=== PATIENT | female | born 1945 | race Caucasian/White ===

== ENCOUNTER 2016-06-10 12:53 | Emergency (ER) ==
--- NOTE | 2016-06-10 13:20 | PROVIDER DOCUMENTATION ---
HPI-Head Injury - General Source: patient, EMS - History of Present Illness-Head Injury Head Injury Location: reports: occipital Other injuries associated with incident:: reports: head Quality of Pain: reports: aching Severity: reports: moderate Onset/Duration: reports: just prior to arrival Timing: reports: still present Method of Injury: reports: fell Any recent trauma/injury?: reports: minor Loss of Consciousness: no loss of consciousness Locality of Occurance: Home Similar Symptoms Previously?: No Recently seen or treated by another doctor?: No <Rochelle Tinoco - Last Filed: 06/10/16 14:19> <Kamilah Aguilera - Last Filed: 06/10/16 14:52> - General Chief Complaint: Fall Stated Complaint: fell and hit head Time Seen by Provider: 06/10/16 13:00 Allergies/Adverse Reactions: Patient Allergies Allergy/AdvReac Type Severity Reaction Status Date / Time adhesive tape Allergy RASH Verified 06/10/16 13:25 levofloxacin [From Levaquin] Allergy Unknown Verified 06/10/16 13:25 cephalexin monohydrate * AdvReac HIVES Verified 06/10/16 13:25 [From Keflex] codeine AdvReac ITCHING Verified 06/10/16 13:25 Home Medications: Cholecalciferol (Vitamin D3) [Vitamin D3] 2,000 unit PO QHS 05/13/15 Levothyroxine [Synthroid] 25 microgm PO DAILY 05/15/15 Lamotrigine [Lamictal] 800 mg PO DAILY 12/10/15 Dicyclomine [Bentyl] 1 tab PO DAILY 04/13/16 - History of Present Illness-Head Injury Nature of Presenting Problem: Reports was running to go to bathroom in slippers lost balance fell and hit back of head bleeding controlled. Denies n,v,loc,blurry vision. (Rochelle Tinoco) Review of Systems - Adult - REVIEW OF SYSTEMS - ADULT Constitutional: denies: chills, fever, fatique Eyes: reports: no symptoms reported Ears, Nose, Mouth & Throat: reports: no symptoms reported Cardiovascular: denies: chest pain, irregular heart rate, orthopnea, syncope Respiratory: reports: no symptoms reported Gastrointestinal: reports: no symptoms reported Genitourinary: reports: no symptoms reported Musculoskeletal: reports: no symptoms reported Integumentary: reports: see HPI Neurological: reports: see HPI, headache/migraines. denies: numbness, paresthesia, tremors Psychiatric: reports: no symptoms reported Endocrine: reports: no symptoms reported Hematologic/Lymphatic: reports: no symptoms reported Allergic/Immunologic: reports: no symptoms reported All Other Systems: Reviewed and Negative <EarnestRochelle - Last Filed: 06/10/16 14:19> Past History - Adult - PAST MEDICAL HISTORY-ADULT Review of Records: reports: Nursing Assessment Review Major Childhood Illnesses: reports: denies history Cardiovascular: reports: denies history Respiratory: reports: asthma, pneumonia Gastrointestinal: reports: cholelithiasis Obstetrical/Gynecological: reports: denies history Genitourinary: reports: denies history Musculoskeletal: reports: other (pt states dignosed) Neurological: reports: Multiple Sclerosis, Seizures/Epilepsy (seizure ) Endocrine/Immune: reports: denies history Other Conditions: reports: denies history - PRIOR SURGERIES/PROCEDURES Surgical/Procedure History: reports: appendectomy, colonoscopy, hysterectomy, hernia repair, orthopedic (extremity) - IMMUNIZATION STATUS Childhood Immunizations: See Nurse Assessment Flu Vaccine: See Nurse Assessment - FAMILY HISTORY Family History: reviewed, not pertinent - SOCIAL HISTORY Smoking: denies Substance Use: none/never <EarnestRochelle - Last Filed: 06/10/16 14:19> Physical Exam- Neurological - Physical Exam-Neuro Initial Vital Signs Reviewed: Yes General Appearance: appears well, alert, no apparent distress Eye Exam: bilateral eye: normal inspection, PERRL, EOMI HENMT: normocephalic/atraumatic, moist mucous membranes, normal ENT inspection, TMs normal, pharynx normal Head Injury: lacerations (2cm occipital) Neck: non-tender, full range of motion, supple, normal inspection Respiratory: chest non-tender, lungs clear, normal breath sounds, no pleuratic chest pain, no respiratory distress, no accessory muscle use Cardiovascular: normal peripheral pulses, regular rate, rhythm, no edema, no gallop, no JVD, no murmur Abdominal Exam: normal bowel sounds, non tender, soft, no organomegaly, no pulsatile mass Lymphatic: no adenopathy Extremity: normal range of motion, non-tender, normal gait, normal inspection, no pedal edema, no calf tenderness, normal capillary refill, 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 Exam: normal hearing, normal speech, PERRL Coordination/Gait: normal finger to nose, normal gait, negative Romberg's sign Motor/Sensory: no motor deficit, no sensory deficit, no pronator drift, negative Babinski's sign 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 II-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 Ready to go home) - XRAY 1 XRAY Study: Chest Impression: Normal - CT/MRI 1 CT Study: Cervical Spine, Head Impression: Normal <You Aguilerajonna X - Last Filed: 06/10/16 14:52> - PLAN OF CARE/RESULTS Progress/Plan/Lab Results: Orders Category Date Time Status Cardiac Monitoring DIRECTED Care 06/10/16 13:17 Active Saline Loc NOW Care 06/10/16 13:17 Active CHEST-PORTABLE [RAD] Stat Exams 06/10/16 13:17 Ordered HEAD W/O CONTRAST [CT] Stat Exams 06/10/16 13:18 Ordered CBC WITH ELECTRONIC DIFF [HEME] Stat Lab 06/10/16 13:17 Ordered COMPREHENSIVE METABOLIC PANEL [CHEM] Stat Lab 06/10/16 13:17 Ordered TROPONIN T Stat Lab 06/10/16 13:[address] W/POSS RFLX CULT [URINALYSIS] Stat Lab 06/10/16 13:17 Uncollected Pulse Oximetry Stat Oth 06/10/16 13:17 Active EKG [EKG] Stat Ther 06/10/16 13:17 Ordered Vital Signs - 24 hr 06/10/16 12:55 Temperature 98.2 F Pulse Rate 87 Respiratory 18 Rate Blood Pressure 147/85 O2 Sat by Pulse 95 Oximetry Laboratory Tests 06/10/16 06/10/16 06/10/16 12:57 Unknown Unknown WBC RBC Hgb Hct MCV MCH MCHC RDW Std Deviation Plt Count MPV Immature Gran % (Auto) Neut % (Auto) Lymph % (Auto) [place] % (Auto) Eos % (Auto) Baso % (Auto) Immature Gran # (Auto) Neut # (Auto) Lymph # (Auto) [place] # (Auto) Eos # (Auto) Baso # (Auto) PT INR APTT (Factor Assay) Sodium 141 Potassium 3.6 Chloride 103 Carbon Dioxide 25 Anion Gap 13 BUN 13 Creatinine 0.7 Estimated GFR/1.73 m2 > 60 BUN/Creatinine Ratio 19 Glucose 132 H Calculated Osmolality 283 Calcium 10.0 Total Bilirubin 0.20 AST 20 ALT 14 Alkaline Phosphatase 117 H Troponin T < 0.010 Total Protein 7.5 Albumin 4.5 Globulin 3.0 Albumin/Globulin Ratio 2.0 Urine Source VOIDED Urine Color YELLOW Urine Clarity SL. CLOUDY A Urine pH 7.0 Ur Specific [place] 1.010 Urine Protein 1+(30 mg/dL) A Urine Ketones NEGATIVE Urine Blood NEGATIVE Urine Nitrite NEGATIVE Urine Bilirubin NEGATIVE Urine Urobilinogen NORMAL Urine Microscopic RBC <10 Urine WBC TRACE A Urine Microscopic WBC <10 Ur Epithelial Cells >10 A Urine Bacteria 1+ Urine Yeast PRESENT Urine Glucose NEGATIVE 06/10/16 06/10/16 Unknown Unknown WBC 5.00 RBC 5.21 Hgb 13.8 Hct 43.6 MCV 83.7 MCH 26.5 L MCHC 31.7 L RDW Std Deviation 15.7 H Plt Count 372 MPV 10.0 Immature Gran % (Auto) 0.6 H Neut % (Auto) 60.0 Lymph % (Auto) 27.4 [place] % (Auto) 9.0 Eos % (Auto) 2.8 Baso % (Auto) 0.2 Immature Gran # (Auto) 0.03 Neut # (Auto) 3.00 Lymph # (Auto) 1.37 [place] # (Auto) 0.45 Eos # (Auto) 0.14 Baso # (Auto) 0.01 PT 19.2 H INR 1.59 H APTT (Factor Assay) 33.1 Sodium Potassium Chloride Carbon Dioxide Anion Gap BUN Creatinine Estimated GFR/1.73 m2 BUN/Creatinine Ratio Glucose Calculated Osmolality Calcium Total Bilirubin AST ALT Alkaline Phosphatase Troponin T Total Protein Albumin Globulin Albumin/Globulin Ratio Urine Source Urine Color Urine Clarity Urine pH Ur Specific [place] Urine Protein Urine Ketones Urine Blood Urine Nitrite Urine Bilirubin Urine Urobilinogen Urine Microscopic RBC Urine WBC Urine Microscopic WBC Ur Epithelial Cells Urine Bacteria Urine Yeast Urine Glucose (Rochelle Tinoco) Laboratory Results - last 24 hr 06/10/16 06/10/16 06/10/16 12:57 Unknown Unknown WBC RBC Hgb Hct MCV MCH MCHC RDW Std Deviation Plt Count MPV Immature Gran % (Auto) Neut % (Auto) Lymph % (Auto) [place] % (Auto) Eos % (Auto) Baso % (Auto) Immature Gran # (Auto) Neut # (Auto) Lymph # (Auto) [place] # (Auto) Eos # (Auto) Baso # (Auto) PT INR APTT (Factor Assay) Sodium 141 Potassium 3.6 Chloride 103 Carbon Dioxide 25 Anion Gap 13 BUN 13 Creatinine 0.7 Estimated GFR/1.73 m2 > 60 BUN/Creatinine Ratio 19 Glucose 132 H Calculated Osmolality 283 Calcium 10.0 Total Bilirubin 0.20 AST 20 ALT 14 Alkaline Phosphatase 117 H Troponin T < 0.010 Total Protein 7.5 Albumin 4.5 Globulin 3.0 Albumin/Globulin Ratio 2.0 Urine Source VOIDED Urine Color YELLOW Urine Clarity SL. CLOUDY A Urine pH 7.0 Ur Specific [place] 1.010 Urine Protein 1+(30 mg/dL) A Urine Ketones NEGATIVE Urine Blood NEGATIVE Urine Nitrite NEGATIVE Urine Bilirubin NEGATIVE Urine Urobilinogen NORMAL Urine Microscopic RBC <10 Urine WBC TRACE A Urine Microscopic WBC <10 Ur Epithelial Cells >10 A Urine Bacteria 1+ Urine Yeast PRESENT Urine Glucose NEGATIVE 06/10/16 06/10/16 Unknown Unknown WBC 5.00 RBC 5.21 Hgb 13.8 Hct 43.6 MCV 83.7 MCH 26.5 L MCHC 31.7 L RDW Std Deviation 15.7 H Plt Count 372 MPV 10.0 Immature Gran % (Auto) 0.6 H Neut % (Auto) 60.0 Lymph % (Auto) 27.4 [place] % (Auto) 9.0 Eos % (Auto) 2.8 Baso % (Auto) 0.2 Immature Gran # (Auto) 0.03 Neut # (Auto) 3.00 Lymph # (Auto) 1.37 [place] # (Auto) 0.45 Eos # (Auto) 0.14 Baso # (Auto) 0.01 PT 19.2 H INR 1.59 H APTT (Factor Assay) 33.1 Sodium Potassium Chloride Carbon Dioxide Anion Gap BUN Creatinine Estimated GFR/1.73 m2 BUN/Creatinine Ratio Glucose Calculated Osmolality Calcium Total Bilirubin AST ALT Alkaline Phosphatase Troponin T Total Protein Albumin Globulin Albumin/Globulin Ratio Urine Source Urine Color Urine Clarity Urine pH Ur Specific [place] Urine Protein Urine Ketones Urine Blood Urine Nitrite Urine Bilirubin Urine Urobilinogen Urine Microscopic RBC Urine WBC Urine Microscopic WBC Ur Epithelial Cells Urine Bacteria Urine Yeast Urine Glucose Vital Signs Temp Pulse Resp BP Pulse Ox 06/10/16 14:20 73 17 156/104 98 06/10/16 12:55 98.2 F 87 18 147/85 95 adhesive tape Allergy (Verified 06/10/16 13:25) RASH levofloxacin [From Levaquin] Allergy (Verified 06/10/16 13:25) Unknown TENDENITIS cephalexin monohydrate * [From Keflex] Adverse Reaction (Verified 06/10/16 13:25 ) HIVES codeine Adverse Reaction (Verified 06/10/16 13:25) ITCHING Cholecalciferol (Vitamin D3) [Vitamin D3] 2,000 unit PO QHS 05/13/15 Levothyroxine [Synthroid] 25 microgm PO DAILY 05/15/15 Warfarin [Coumadin] 10 mg PO QHS #30 tablet 05/16/15 Albuterol Sulfate [Albuterol Sulfate Hfa] 2 puff IH Q4H PRN #1 hfa.aer.ad Lamotrigine [Lamictal] 800 mg PO DAILY 12/10/15 Dicyclomine [Bentyl] 1 tab PO DAILY 04/13/16 Ondansetron HCl [Zofran] 1 - 2 tab PO Q6H PRN PRN #15 tablet 04/13/16 Pantoprazole [Protonix] 40 mg PO DAILY@0700 #30 tablet 04/13/16 Laboratory 06/10/16 06/10/16 06/10/16 Unknown Unknown Unknown WBC 5.00 RBC 5.21 Hgb 13.8 Hct 43.6 MCV 83.7 MCH 26.5 L MCHC 31.7 L RDW Std Deviation 15.7 H Plt Count 372 MPV 10.0 Immature Gran % (Auto) 0.6 H Neut % (Auto) 60.0 Lymph % (Auto) 27.4 [place] % (Auto) 9.0 Eos % (Auto) 2.8 Baso % (Auto) 0.2 Immature Gran # (Auto) 0.03 Neut # (Auto) 3.00 Lymph # (Auto) 1.37 [place] # (Auto) 0.45 Eos # (Auto) 0.14 Baso # (Auto) 0.01 PT 19.2 H INR 1.59 H APTT (Factor Assay) 33.1 Sodium Potassium Chloride Carbon Dioxide Anion Gap BUN Creatinine Estimated GFR/1.73 m2 BUN/Creatinine Ratio Glucose Calculated Osmolality Calcium Total Bilirubin AST ALT Alkaline Phosphatase Troponin T < 0.010 Total Protein Albumin Globulin Albumin/Globulin Ratio Urine Source Urine Color Urine Clarity Urine pH Ur Specific [place] Urine Protein Urine Ketones Urine Blood Urine Nitrite Urine Bilirubin Urine Urobilinogen Urine Microscopic RBC Urine WBC Urine Microscopic WBC Ur Epithelial Cells Urine Bacteria Urine Yeast Urine Glucose 06/10/16 06/10/16 Unknown 12:57 WBC RBC Hgb Hct MCV MCH MCHC RDW Std Deviation Plt Count MPV Immature Gran % (Auto) Neut % (Auto) Lymph % (Auto) [place] % (Auto) Eos % (Auto) Baso % (Auto) Immature Gran # (Auto) Neut # (Auto) Lymph # (Auto) [place] # (Auto) Eos # (Auto) Baso # (Auto) PT INR APTT (Factor Assay) Sodium 141 Potassium 3.6 Chloride 103 Carbon Dioxide 25 Anion Gap 13 BUN 13 Creatinine 0.7 Estimated GFR/1.73 m2 > 60 BUN/Creatinine Ratio 19 Glucose 132 H Calculated Osmolality 283 Calcium 10.0 Total Bilirubin 0.20 AST 20 ALT 14 Alkaline Phosphatase 117 H Troponin T Total Protein 7.5 Albumin 4.5 Globulin 3.0 Albumin/Globulin Ratio 2.0 Urine Source VOIDED Urine Color YELLOW Urine Clarity SL. CLOUDY A Urine pH 7.0 Ur Specific [place] 1.010 Urine Protein 1+(30 mg/dL) A Urine Ketones NEGATIVE Urine Blood NEGATIVE Urine Nitrite NEGATIVE Urine Bilirubin NEGATIVE Urine Urobilinogen NORMAL Urine Microscopic RBC <10 Urine WBC TRACE A Urine Microscopic WBC <10 Ur Epithelial Cells >10 A Urine Bacteria 1+ Urine Yeast PRESENT Urine Glucose NEGATIVE Orders Category Date Time Status Cardiac Monitoring DIRECTED Care 06/10/16 13:17 Active Saline Loc NOW Care 06/10/16 13:17 Active CHEST-1 VIEW [RAD] Stat Exams 06/10/16 13:17 Completed HEAD W/O CONTRAST [CT] Stat Exams 06/10/16 13:18 Taken CBC WITH ELECTRONIC DIFF [HEME] Stat Lab 06/10/16 Completed COMPREHENSIVE METABOLIC PANEL [CHEM] Stat Lab 06/10/[address] Com[address]IME WITH INR PL [COAG] Stat Lab 06/10/[address] [COAG] Stat Lab 06/10/16 Completed TROPONIN T Stat Lab 06/10/[address] W/POSS RFLX CULT [URINALYSIS] Stat Lab 06/10/16 12:57 Completed URINE CULTURE [RM] Routine Lab 06/10/16 14:08 Ordered Acetaminophen [Tylenol] Med 06/10/16 13:32 Discontinued 1,000 mg PO NOW ONE Pulse Oximetry Stat Oth 06/10/16 13:17 Active EKG [EKG] Stat Ther 06/10/16 13:17 Ordered (Kamilah Aguilera) Procedures - LACERATION/WOUND REPAIR/FB Head Wound Length: 3 CM Wound's Depth, Shape: superficial, irregular Wound Explored/Foreign Body: clean Irrigated with Saline?: Yes Prepped with: Betadine Hibiclens Wound Debrided: minimal Wound Repaired with: [place]-Large Number of Sutures: 3 Layer Closure?: No Sterile Dressing Applied?: No Splint Applied?: No Sling Applied?: No <Kamilah Aguilera - Last Filed: 06/10/16 14:52> Departure - Departure Time of Disposition Order: 14:20 Certified Medical Emergency: Emergent <Rochelle Tinoco - Last Filed: 06/10/16 14:19> - Departure Time of Disposition Order: 14:49 Certified Medical Emergency: Emergent <Kamilah Aguilera - Last Filed: 06/10/16 14:52> - Departure DIAGNOSIS: Laceration Head injury Qualifiers: Encounter type: initial encounter Qualified Code(s): S09.90XA - Unspecified injury of head, initial encounter Fall Qualifiers: Encounter type: initial encounter Qualified Code(s): W19.XXXA - Unspecified fall, initial encounter Disposition: HOME 01 Condition: Stable Additional Instructions: ED Follow Up Instructions: Return to ER immediately if start to have confusion, Headache, cannot walk straight and nausea, vomiting, or unequal pupils. Follow up with regular MD tomorrow. You have been treated by a care provider in the Emergency Department. These instructions are being provided to you so you can have an understanding of how to care for yourself upon discharge. Upon discharge from the Emergency Department, you are responsible for making arrangements for follow-up care by a physician of your choice. Take all prescribed medications as directed. Return to the Emergency Department immediately for any new or worsening symptoms. You may call the Physician Referral phone number at [phone] to obtain a list of Physicians who are taking new patients. Referrals: None,PCP [Primary Care Provider] - Attestation - Scribe Verification/Attestation Scribe:: Rochelle Tinoco Acting as Scribe for:: Kamilah Aguilera Scribe documention review:: This chart was documented by a scribe and accurately reflects the service the provider performed and the decisions made by the provider. <Rochelle Tinoco - Last Filed: 06/10/16 14:19> Physician Attestation
[2016-06-10 13:30] LABS: URINE SOURCE VOIDED
[2016-06-10 13:31] LABS: MANUAL DIFF NEEDED? NO
[2016-06-10] MEDS ORDERED: TYLENOL PO ONE (13:32)
[2016-06-10 13:34] LABS: BASO% 0.2 % (0.0-0.8); EOS# 0.14 X1000 (0.0-0.7); EOS% 2.8 % (0.0-10.0); HEMATOCRIT 43.6 % (37.0-47.0); HEMOGLOBIN 13.8 g/dL (12.0-16.0); IMM GRAN# 0.03 X1000 (0.0-0.04); IMM GRAN% 0.6 % (0.0-0.5); LYMPH# 1.37 X1000 (1.2-3.4); LYMPH% 27.4 % (20.5-51.1); MCH 26.5 PG (27-31); MCHC 31.7 g/dL (33-37); MCV 83.7 FL (81-99); MONO# 0.45 X1000 (0.11-0.59); PLT 372 X1000 (130-400); RBC 5.21 XMIL (4.2-5.4)
[2016-06-10 14:03] LABS: AGAP 13; ALBUMIN 4.5 g/dL (3.5-5.0); ALKALINE PHOSPHATASE 117 U/L (32-104); BUN 13 mg/dL (8-22); CHLORIDE 103 mmol/L (98-107); COSMO 283; GOT 20 U/L (10-30); GPT 14 U/L (10-36); INR 1.59 (0.86-1.15); POTASSIUM 3.6 mmol/L (3.5-5.1); PROTIME 19.2 Seconds (12.1-15.5); SODIUM 141 mmol/L (136-145); TCO2 25 mmol/L (25-35); TOTAL PROTEIN 7.5 g/dL (6.3-8.3)
[2016-06-10 14:04] LABS: PTT PL 33.1 Seconds (22.6-43.9)
[2016-06-10 14:05] LABS: BILIRUBIN URINE NEGATIVE (NEGATIVE); BLOOD URINE NEGATIVE (NEGATIVE); CLARITY SL. CLOUDY (CLEAR); COLOR YELLOW; GLUCOSE URINE NEGATIVE (NEGATIVE); LEUKOCYTES URINE TRACE (NEGATIVE); NITRITE URINE NEGATIVE (NEGATIVE); PROTEIN URINE 1+(30 mg/dL) mg/dL (NEGATIVE); UROBILINOGEN URINE NORMAL
[2016-06-10 14:08] LABS: URINE CULTURE PL NEEDED? YES; URINE EPITHELIAL CELLS >10 /HPF (<10); URINE RBC <10 /HPF (<10); URINE WBC <10 /HPF (<10)
[2016-06-10 14:20] VITALS: BP 156/104
--- NOTE | 2016-06-10 14:33 | Diag Imaging Result Document ---
PROCEDURE NAME: CHEST-1 VIEW - 06/10/2016 AP CHEST: FINDINGS: There is no evidence of acute cardiac or pulmonary disease. Compared to 04/13/2016 there has been no significant change. IMPRESSION: Stable chest.
--- NOTE | 2016-06-10 14:50 | Diag Imaging Result Document ---
PROCEDURE NAME: HEAD W/O CONTRAST - 06/10/2016 CT HEAD WITHOUT CONTRAST: FINDINGS: A dose reduction protocol was used. Compared with 12/10/2015. There is mild subcutaneous soft tissue swelling at the posterior scalp. There is no evidence of intracranial hemorrhage, mass effect, midline shift, or hydrocephalus. There are moderate chronic microvascular ischemic changes. There is no lacunar infarct at the right caudate nucleus. There is no indication of recent infarct, although acute infarcts may not be immediately visible. There is no skull fracture. IMPRESSION: Chronic ischemic changes. No visible acute intracranial abnormality. No evidence of intracranial injury.
--- NOTE | 2016-06-11 00:06 | EKG Report ---
Test Performed on : 06/10/2016 1:38:42 PM Test Reason : AMS Blood Pressure : / mmHG Vent. Rate : 073 BPM Atrial Rate : 073 BPM P-R Int : 148 ms QRS Dur : 128 ms QT Int : 438 ms P-R-T Axes : 072 -46 030 degrees QTc Int : 482 ms Normal sinus rhythm. Right bundle branch block Left anterior fascicular block Bifascicular block Abnormal ECG When compared with ECG of 13-APR-2016 13:59, No significant change was found Unconfirmed Result
== END 2016-06-10 15:31 | disposition home or self-care (01) ==
LOC: P.ED 12:53
DX: S01.01XA Laceration without foreign body of scalp, initial encounter (principal); S09.90XA Unspecified injury of head, initial encounter; R51 Headache; G35 Multiple sclerosis; J45.909 Unspecified asthma, uncomplicated; W01.0XXA Fall on same level from slipping, tripping and stumbling without subsequent striking against object, initial encounter; Z79.899 Other long term (current) drug therapy; Z79.01 Long term (current) use of anticoagulants
CPT/HCPCS: 70450; 71010; 80053; 81001; 84484; 85025; 85610; 85730; 87088; 93005

== ENCOUNTER 2017-01-02 17:52 | Inpatient (IN) ==
--- NOTE | 2017-01-02 18:43 | PROVIDER DOCUMENTATION ---
This chart was entered by Carl Pate Scribe, acting as scribe for Steve Cheney MD. HPI-Neurological Disorder - General Chief Complaint: Headache Stated Complaint: DIZZINESS Time Seen by Provider: 01/02/17 18:08 Source: patient Allergies/Adverse Reactions: Patient Allergies Allergy/AdvReac Type Severity Reaction Status Date / Time adhesive tape Allergy RASH Verified 10/16/16 15:02 levofloxacin [From Levaquin] Allergy Unknown Verified 10/16/16 15:02 cephalexin monohydrate * AdvReac HIVES Verified 10/16/16 15:02 [From Keflex] codeine AdvReac ITCHING Verified 10/16/16 15:02 Home Medications: Home Medication List Medication Instructions Recorded Confirmed Last Taken Type Cholecalciferol (Vitamin D3) 2,000 unit PO QHS 05/13/15 01/02/17 12/19/16 History [Vitamin D3] Levothyroxine [Synthroid] 25 microgm PO DAILY 05/15/15 01/02/17 01/02/17 History Warfarin [Coumadin] 10 mg PO QHS #30 tablet 05/16/15 01/02/17 01/01/17 Rx Albuterol Sulfate [Albuterol 2 puff IH Q4H PRN #1 hfa.aer.ad 07/31/15 01/02/17 01/01/17 Rx Sulfate Hfa] Lamotrigine [Lamictal] 800 mg PO DAILY 12/10/15 01/02/17 01/02/17 History Dicyclomine [Bentyl] 1 tab PO DAILY 04/13/16 01/02/17 12/03/16 History Ondansetron HCl [Zofran] 1 - 2 tab PO Q6H PRN PRN #15 tablet 04/13/16 01/02/17 01/02/17 17:25 Rx Pantoprazole [Protonix] 40 mg PO DAILY@0700 #30 tablet 04/13/16 01/02/17 Rx - History of Present Illness-Neuro Nature of Presenting Problem: Pt is a 71 yowf with hx of MS presents to ER with CC of bilateral lower extremity weakness/dizziness when standing or trying to walk x24 hours. Pt reports that she is also having a moderate headache, and nausea. 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 Pt reports hat the last time she had a MS exacerbation , she received solumedrol tx. Pt reports that she is followed by Dr. Moore. Headache Location: reports: other (unspecified) Severity: reports: moderate Onset/Duration: reports: 24 hours ago Timing: reports: still present Character of Deficits: reports: decreased ability to walk New weakness or altered sensation location:: reports: RLE, LLE Cognitive Baseline: alert, oriented x3 Gait Baseline: uses a cane Associated Symptoms: reports: headache, decreased ability to walk or stand, dizziness (on standing), nausea, trouble walking, weakness. denies: fainting, confusion, chest pain, neck/back pain, fever/chills, loss of consciousness, muscle spasms, numbness in legs/feet, paresthesia, seizures, slurred speech, tingling in legs/feet, vomiting, vision changes Similar Symptoms Previously?: Yes Recently seen or treated by another doctor?: Yes Review of Systems - Adult - REVIEW OF SYSTEMS - ADULT Constitutional: denies: chills, fever, fatique, night sweats, weight gain, weight loss Eyes: denies: decreased vision, blurred vision, double vision, eye pain Ears, Nose, Mouth & Throat: reports: no symptoms reported Cardiovascular: reports: no symptoms reported Respiratory: reports: no symptoms reported Gastrointestinal: reports: nausea. denies: abdominal pain, hematemesis, constipation, diarrhea, difficulty swallowing, frequent heartburn, poor appetite , rectal bleeding, vomiting Genitourinary: reports: no symptoms reported Musculoskeletal: reports: muscle weakness. denies: bone pain, back pain, frequent leg cramps, joint pain, joint swelling, muscle aches, neck pain Integumentary: reports: no symptoms reported Neurological: reports: dizziness/vertigo, headache/migraines, loss of balance. denies: ataxia, numbness, paresthesia, seizure, slurred speech, syncope, tremors Psychiatric: reports: no symptoms reported Endocrine: reports: no symptoms reported Hematologic/Lymphatic: reports: no symptoms reported Allergic/Immunologic: reports: no symptoms reported All Other Systems: Reviewed and Negative Past History - Adult - PAST MEDICAL HISTORY-ADULT Review of Records: reports: Nursing Assessment Review, Medications Reviewed Respiratory: reports: asthma, pneumonia Gastrointestinal: reports: cholelithiasis Musculoskeletal: reports: other (pt states dignosed) Neurological: reports: Multiple Sclerosis, Seizures/Epilepsy (seizure ) - PRIOR SURGERIES/PROCEDURES Surgical/Procedure History: reports: appendectomy, colonoscopy, hysterectomy, hernia repair, orthopedic (extremity) - IMMUNIZATION STATUS Childhood Immunizations: See Nurse Assessment Flu Vaccine: See Nurse Assessment Physical Exam- Neurological - Physical Exam-Neuro Initial Vital Signs Reviewed: Yes General Appearance: appears well, alert, no apparent distress Eye Exam: bilateral eye: PERRL, EOMI Respiratory: chest non-tender, lungs clear, normal breath sounds, no pleuratic chest pain, no respiratory distress, no accessory muscle use. negative: respiratory distress, decreased breath sounds, accessory muscle use, wheezing Cardiovascular: normal peripheral pulses, regular rate, rhythm. negative: bradycardia, tachycardia, irregularly irregular Extremity: normal range of motion, non-tender, no pedal edema, no calf tenderness, normal capillary refill, other (bilateral leg elevation without difficulty while lying on bed). negative: deformity, erythema, inflammation, swelling, tenderness grader meat Exam: normal hearing, normal speech, PERRL Psych/Mental Status: normal mood/affect, normal thought content, normal thought process, oriented x 3 Progress - PLAN OF CARE/RESULTS Progress/Plan/Lab Results: Vital Signs - 8 hr 01/02/17 17:56 Temperature 98.2 F Pulse Rate 91 H Respiratory Rate 20 Blood Pressure 148/83 O2 Sat by Pulse Oximetry 96 Orders Category Date Time Status CBC WITH ELECTRONIC DIFF [HEME] Stat Lab 01/02/17 19:22 Ordered CMP [COMPREHENSIVE METABOLIC PANEL] [CHEM] Stat Lab 01/02/17 19:22 Ordered Methylprednisolone Sod Succ [Solu-Medrol] Med 01/02/17 18:50 Discontinued 500 mg IV NOW ONE Prochlorperazine [Compazine] Med 01/02/17 18:44 Discontinued 10 mg IV NOW ONE - CONSULTS/PCP/HOSPITALIST Notification #1 *Consult/PCP/Hospitalist*: Dr. Webber (Hospitalist) Time Discussed: 19:20 (Admit after labs) Departure - Departure Date of Disposition Decision: 01/02/17 Time of Disposition Decision: 19:23 DIAGNOSIS: Multiple sclerosis exacerbation Disposition: ADMITTED INPATIENT 09 Certified Medical Emergency: Emergent Condition: Good Referrals and Follow-Ups: Judy Medellin CRNP [Primary Care Provider] - - Critical Care Note This patient required my direct & personal management of CC.: No Attestation - Physician/ OLI Attestation Patient care was provided by Advanced Practice Provider:: No The physician spent face to face time with patient:: Yes Advanced Practice Provider documentation review:: Supervising physician onsite and consulted in the evaluation and care of this patient. The physician did have a face to face encounter with the patient. This chart was documented by the indicated scribe, (Carl Pate Scribe) and accurately reflects the services I performed and decisions made by me, Steve Jacinto MD, as attested by the provider's signature.
[2017-01-02] MEDS ORDERED: COMPAZINE IV ONE (18:44)
[2017-01-02] MEDS ORDERED: SOLU-MEDROL IV ONE (18:50)
[2017-01-02 19:26] LABS: MANUAL DIFF NEEDED? NO
[2017-01-02 19:29] LABS: BASO% 0.8 % (0.0-0.8); EOS# 0.31 X1000 (0.0-0.7); EOS% 4.3 % (0.0-10.0); HEMATOCRIT 37.7 % (37.0-47.0); HEMOGLOBIN 11.8 g/dL (12.0-16.0); IMM GRAN# 0.05 X1000 (0.0-0.04); IMM GRAN% 0.7 % (0.0-0.5); LYMPH# 1.86 X1000 (1.2-3.4); LYMPH% 25.5 % (20.5-51.1); MCH 25.4 PG (27-31); MCHC 31.3 g/dL (33-37); MCV 81.1 FL (81-99); MPV 9.9 FL (7.4-10.4); NEUT% 57.7 % (42.2-75.2); PLT 353 X1000 (130-400); RBC 4.65 XMIL (4.2-5.4)
[2017-01-02 19:56] LABS: AGAP 12; ALBUMIN 3.8 g/dL (3.5-5.0); ALKALINE PHOSPHATASE 101 U/L (32-104); BUN 11 mg/dL (8-22); CALCIUM 9.5 mg/dL (8.8-10.2); CHLORIDE 102 mmol/L (98-107); COSMO 284; GOT 16 U/L (10-30); GPT 11 U/L (10-36); POTASSIUM 4.4 mmol/L (3.5-5.1); SODIUM 143 mmol/L (136-145); TCO2 29 mmol/L (25-35); TOTAL BILIRUBIN 0.17 mg/dL (0.20-1.00); TOTAL PROTEIN 6.6 g/dL (6.3-8.3)
[2017-01-02] MEDS ORDERED: ZOFRAN IV PRN (21:07)
[2017-01-02] MEDS ORDERED: TYLENOL PO PRN (21:07)
[2017-01-02] MEDS ORDERED: KLONOPIN PO PRN (21:07)
[2017-01-02] MEDS ORDERED: SODIUM CHLORIDE 0.9% INJ ONE (21:07)
[2017-01-02 21:25] LABS: INR 2.4; PROTIME 26.6 Seconds (9.2-11.7)
--- NOTE | 2017-01-02 21:41 | HISTORY AND PHYSICAL ---
Patient of Grecia Soares, also patient of Dr. Teresa Rojas [place]. REASON FOR ADMISSION: Lower extremity weakness and ataxia with dizziness. HISTORY OF PRESENT ILLNESS: Ms. Macario 71-year-old lady with past medical history of asthma, multiple sclerosis, seizures, hypothyroidism and prior PE. She states that last time she was admitted for major relapse about a year ago. Comes in today with complaints of postural lightheadedness with simultaneous vertigo and she tried not to come into hospital and thought she could wait it out which she has done in the past. However 3-4 hours later she noticed when she tried to get up her legs were very weak on her that she almost fell. Despite this she still did not want to come in. But as the day wore on she noticed that not only her legs weak she was also ataxic and weakness continued to get to the point that she was unable to stand. Denies any sphincteric malfunction. No headaches, no visual symptoms, no other focal symptoms in the upper extremities, no numbness, tingling. No cardiorespiratory complaints. No palpitations or chest pain. No GI or complaints other than constipation which is chronic. REVIEW OF SYSTEMS: Twelve system review negative, positive finding per HPI. She does have some degree intermittent episodes expressive aphasia, she says this has been worse over the last 1 year. Patient denies any low back pain, patient also complains of chronic intermittent cough was getting slightly worse. HOME MEDICATIONS: Include Coumadin 10 mg at bedtime, Protonix 40 mg daily, Zofran 4 mg q.6, levothyroxine 25 mcg daily, Lamictal 800 mg daily, Bentyl 10 mg daily, vitamin D 2000 units daily, albuterol 2 puffs p.r.n. SURGICAL HISTORY: She had right shoulder surgery twice, appendectomy, hysterectomy, cholecystectomy, gastric bypass surgery. FAMILY HISTORY: No neurological problems but there is positive history of fatal MD, lung cancer, breast cancer. SOCIAL HISTORY: Currently has her granddaughter staying with her, does not smoke, drink or use drugs. ALLERGIES: To Keflex and all oral opioids. LABORATORY WORK: White count 7000, hemoglobin and hematocrit 11 and 37, platelets 353,000. PT, PTT was just ordered by me and is pending, chemistries essentially normal. EXAMINATION: General: Pleasant elderly woman who is not in acute distress. Vital signs: Heart rate is 91, respirations 20, temperature 98.2 degrees, blood pressure 140/83 and 60 on room air. HEENT: Head is normocephalic. JERMAN, EOMI, she is anicteric, not pale. Cranial nerves 2- 12 are grossly intact. Neck: Supple. No JVD or carotid bruit. No thyromegaly. Chest: Clear to auscultation. Good entry both lung grant. Cardiovascular: 1st, 2nd sounds heard. No gallops, rubs, rhythm is regular. Abdomen: Protuberant, soft, nontender, no megaly, bowel sounds hypoactive. Rectal: Deferred at this time. Extremities: Good pulses distally in all extremities. No clubbing or peripheral cyanosis, no edema. Neurological: Only thing of note on exam is that she has slight weakness bilaterally in the lower extremity. I rate the power to be about 3 to 4/5 both lower extremities. [id number] is normal. Good proprioception of the lower extremities noted. No sensory deficits. DTRs are 1+ in the lower extremities. Skin: Intact, no breakdown, lesion. Muscular exam: Is grossly normal. FINAL DIAGNOSIS: 1. Multiple sclerosis relapse. Start patient on high-dose steroids 1 g over 24 hours and will consult Neurology to see. Also treat patient for any potential side effects i.e. dyspepsia and agitation. 2. Asthma, treat p.r.n. with albuterol however if there is chronic persistent asthma dose of steroids should be able to address this 3. Seizure disorder, will continue Lamictal. 4. Hypothyroidism. Continue Synthroid. Will also start the patient on laxatives to help with constipation. Await PT, PTT and continue Coumadin, adjust dose accordingly and also treat patient antiemetics if there is any GI dyspeptic symptoms from the high-dose steroids. cc: MD Benjamin Giles MD
[2017-01-02] MEDS: COUMADIN PO SCH ×2 (22:33→22:38)
[2017-01-02] MEDS: VITAMIN D PO SCH (22:33)
[2017-01-02] MEDS: NS 1,000 ML IV SCH (22:34)
[2017-01-02] MEDS: LAMICTAL PO SCH (22:34)
[2017-01-03] MEDS: SYNTHROID PO SCH ×2 (05:46→06:52)
[2017-01-03 06:42] LABS: HEMATOCRIT 38.3 % (37.0-47.0); HEMOGLOBIN 11.8 g/dL (12.0-16.0); MCH 25.5 PG (27-31); MCHC 30.8 g/dL (33-37); MCV 82.7 FL (81-99); RBC 4.63 XMIL (4.2-5.4)
[2017-01-03] MEDS: NS 1,000 ML IV SCH (06:52)
[2017-01-03 07:09] LABS: AGAP 11; ALBUMIN 3.7 g/dL (3.5-5.0); ALKALINE PHOSPHATASE 99 U/L (32-104); BUN 15 mg/dL (8-22); CALCIUM 9.6 mg/dL (8.8-10.2); CHLORIDE 102 mmol/L (98-107); COSMO 289; GOT 14 U/L (10-30); GPT 10 U/L (10-36); POTASSIUM 4.4 mmol/L (3.5-5.1); SODIUM 142 mmol/L (136-145); TCO2 29 mmol/L (25-35); TOTAL BILIRUBIN 0.13 mg/dL (0.20-1.00); TOTAL PROTEIN 6.4 g/dL (6.3-8.3)
[2017-01-03] MEDS ORDERED: SODIUM CHLORIDE 0.9% 10 ML ONE (08:21)
[2017-01-03] MEDS ORDERED: SOLU MEDROL IV SCH (09:00)
[2017-01-03] MEDS ORDERED: LAMICTAL PO SCH (09:00)
[2017-01-03] MEDS ORDERED: NS IV SCH (09:00)
[2017-01-03] MEDS: LAMICTAL PO SCH ×2 (11:00→20:03)
[2017-01-03] MEDS: BENTYL PO SCH ×3 (11:05→13:53)
[2017-01-03] MEDS ORDERED: SOLU-MEDROL IV SCH (12:00)
[2017-01-03] MEDS: PROTONIX IV SCH (12:40)
[2017-01-03] MEDS: NS IV SCH ×2 (12:50→13:19)
[2017-01-03] MEDS: SOLU MEDROL IV SCH ×2 (12:50→13:19)
--- NOTE | 2017-01-03 13:03 | Diag Imaging Result Doc PS360 ---
EXAM: MRI BRAIN W W/O CONTRAST HISTORY: r/o MS exacerbation TECHNIQUE: MRI of the brain with and without gadolinium, T1 sagittal and axial, post gadolinium-enhanced FSPGR 3-D axial and coronal reconstruction, T2, FLAIR, DWI axial, gradient echo coronal. COMMENT: There are numerous punctate and patchy areas of increased T2-weighted signal intensity particularly around the atria of the lateral ventricles. There is no evidence of mass effect bleed or abnormal extra-axial fluid collection. There is no evidence of abnormal gadolinium enhancement. There is no evidence of diffusion weighted signal abnormality. No significant changes occurred since the previous study of 05/11/2016. IMPRESSION: Extensive chronic white matter changes. No evidence of active inflammation. Electronically signed by Ranjit Gandara 01/03/2017 1:01 PM
--- NOTE | 2017-01-03 13:07 | Diag Imaging Result Doc PS360 ---
EXAM: MRI C SPINE W/WO CONTRAST HISTORY: eval ms exacerbation TECHNIQUE: MRI of cervical spine with and without gadolinium, T1, T2, STIR, and post gadolinium-enhanced T1 sagittal, T1 pre and post gadolinium axial, T2 axial. COMMENT: There is no evidence of mass effect or signal abnormality in the cord. There is no evidence of abnormal gadolinium enhancement. No significant change in the appearance of the cord is occurred since 06/16/2016. At C1-2 there is no evidence of spinal or foraminal stenosis. At C3-4 there is no spinal or foraminal stenosis. At C4-5 there is no spinal or foraminal stenosis, although there is minimal central disc protrusion. At C4 C5-6 there is mild osteophyte formation without evidence of spinal or foraminal stenosis. At C6-7 there is no spinal or foraminal stenosis. At C7-T1 there is no spinal or foraminal stenosis. IMPRESSION: Minimal disc protrusion at C4-5. No evidence of intramedullary signal abnormality. Electronically signed by Ranjit Gandara 01/03/2017 1:05 PM
--- NOTE | 2017-01-03 13:12 | Diag Imaging Result Doc PS360 ---
EXAM: MRI THORACIC SPINE W/WO CONTR HISTORY: r/o ms exacerbation TECHNIQUE: MRI of the thoracic spine, T1 and T2 sagittal, STIR sagittal, T1 pre and post gadolinium axial and T2 axial. COMMENT: There is accentuated dorsal kyphosis. There is increased T2, T1 and post gadolinium-enhanced signal intensity in the posterior portion of T6 which is probably due to a hemangioma. No evidence of mass effect is present and there is no evidence of abnormal gadolinium enhancement in the cord nor of increased T2-weighted signal intensity. The cord is not enlarged. IMPRESSION: No evidence of demyelinating disease in the thoracic cord. 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 Electronically signed by Ranjit Gandara 01/03/2017 1:09 PM
--- NOTE | 2017-01-03 17:29 | PROGRESS NOTE ---
DATE: 01/03/2017 SUBJECTIVE: Patient reports feeling fine. Reporting feeling mild weakness in both lower extremities. Denies any fever, chills, headache, nausea, vomiting. OBJECTIVE: Vital Signs: Temperature 98.4 degrees, heart rate 85, respiratory rate 20, blood pressure 121/51, O2 saturation 100% on 2 L nasal cannula. General Examination: This is a 71-year- old female lying in bed, in no acute distress. HEENT: Head is normocephalic, atraumatic. Anicteric sclerae and pale conjunctivae. Mucous membranes moist. Neck: Supple. No JVD noted. No carotid bruits. No lymphadenopathy. No thyromegaly. Cardiovascular: S1, S2 heard. No murmurs, gallops, or rubs. Regular rate and rhythm. Respiratory: Clear bilaterally to auscultation. No work of breathing or using accessory muscles. Abdomen: Soft, nontender to palpation. Bowel sounds present. No organomegaly. Extremities: No clubbing, cyanosis, or edema. Peripheral pulses present in both legs. Neurological: She had a slight weakness in both lower extremities, 4/5 intensity. Heel to connelly is normal. No sensory deficits. LABORATORY DATA: The CBC and BMP are completely unremarkable. ASSESSMENT AND PLAN: 1. Suspected multiple sclerosis relapse. Because of this sudden onset of apparently focal symptoms and her history of multiple sclerosis, she was given in the ER 500 mg of Solu-Medrol. The MRI of the brain and C-spine and thoracic spine did not show any signs of acute inflammation. In the brain there were some chronic changes. The patient reports that she has been seen by Dr. Santo in [place] and that according to him, she was told that she had multiple sclerosis, so she was referred to Dr. Moore in [place]. Patient has been seen just once per him. Dr. Moore apparently said that she does not have any multiple sclerosis. In any case, I prefer to have input from Dr. Raphael from Neurology and will go from there. 2. Asthma. Patient is on albuterol p.r.n. 3. Seizure disorder. We will continue with Lamictal. 4. Hypothyroidism. We will continue with home doses of Synthroid. cc: Lalo Miranda MD
--- NOTE | 2017-01-03 18:43 | CONSULTATION ---
DATE OF CONSULTATION: 01/03/2017 REASON FOR EVALUATION: The patient is seen in consultation at the request of Dr. Webber for evaluation of possible multiple sclerosis flare. HISTORY OF PRESENT ILLNESS: A 71-year-old right-handed female, with a history of multiple sclerosis, on Tysabri, seizures, who was admitted yesterday with complaints of vertigo, dizziness, and lower extremity weakness. She says that she felt fine on Tuesday and was sitting in her chair watching TV, when all of the sudden she had some vertiginous symptoms when she tried to get up. She also says that she felt lightheaded, as if she would faint at the same time. Her legs were weak at this time, and she thought she would fall if she got out of the chair. She says her symptoms progressed throughout the day. They were noticed mostly upon trying to get up from a seated or lying position initially for some time, but then she felt that the dizziness was more persistent. No headache or visual changes or sensory changes accompanied these symptoms. She denies any bowel or bladder changes. Denies back pain. She does report sweating while lying in bed but she did not take her temperature, stating that the thermometer was in the nearby bathroom, but she only would get up and walk to the bathroom when she absolutely had to go. She decided to come in to the hospital yesterday due to the symptoms. There was concern for multiple sclerosis exacerbation, and she was started on high-dose steroids. She reports she lost IV access, and only got a partial dose of the steroids last night. She says her symptoms are notably better today, and she is now able to stand and walk, although she does not feel that she is completely back to baseline. With regards to MS, she was diagnosed in the late 1970s around 31 years of age in [place]. Back then, she had some symptoms of right leg and right torso numbness and tingling. She thinks that she may have been weak, but she is not entirely sure of this. She has never had a lumbar puncture. She subsequently went 20 years or more with no obvious problems with her condition. Last year, she reports having had an exacerbation, and then nothing until current. In the past, she had been on Copaxone, though she discontinued this because she started having a heart attack on 2 events, and felt it was perhaps due to the Copaxone that she had been on for 1.5 years. She has also been on Avonex, and more recently Aubagio. She started Tysabri [address] Moore with whom she currently follows. She moved here from [place] 2 years ago and initially saw Dr. Santo in [place] for three separate visits before transferring her care to Dr. Moore. PAST MEDICAL HISTORY: Multiple sclerosis, seizures, hypothyroidism, prior PE, asthma, right shoulder surgery, appendectomy, hysterectomy, cholecystectomy, gastric bypass surgery, bilateral knee surgeries. FAMILY HISTORY: No neurological illnesses in the family. Positive for lung and breast cancer. SOCIAL HISTORY: She lives alone. No smoking, alcohol, or illicit drug use. ALLERGIES: Keflex and oral opioids. REVIEW OF SYSTEMS: Balance of 12 was conducted and is otherwise negative, except that detailed in the HPI. PHYSICAL EXAMINATION: Vital Signs: Reviewed and stable. General: This is a pleasant female, supine in bed, in no acute distress. Neck: Supple. No meningismus. HEENT: Normocephalic atraumatic. Sclerae anicteric. No erythema. Moist mucous membranes. Extremities: Warm, well-perfused. Intact pedal pulses. No significant edema. Neurologic : Mental status: Awake, alert, oriented. Language intact. Attention and concentration intact. Appropriately conversant. Cranial nerves: PERRL. Conjugate gaze. Ocular movements are full. Visual grant full to direct confrontational testing. Face symmetric with equal activation. Tongue midline. Palate elevates symmetrically. Shoulder shrug full. Motor exam: No drift. Normal bulk and tone, including in the BLEs. No wasting or other clear LMN signs. Strength is intact 5/5 throughout, with the exception of maybe 4+ out of 5 in the right hip flexion. Reflexes: Reduced throughout, symmetric. Absent knee jerks. Trace ankle jerks. No clonus. Toes are downgoing. Sensory: No obvious sensory findings on testing. Gait: She is able to come to a standing position without assistance. She is able to take several cautious steps without assistance. Coordination: Cbzcoi-ro-ndrt, finger taps, and hhdf-wg-iobf are done without difficulty. DIAGNOSTICS: All labs reviewed. Notably, white count within normal limits. INR 2.4, PT 26.6. Sodium and potassium within normal limits. BUN 15, creatinine 0.6. Normal GFR. Glucose 183. Liver enzymes are not elevated. Calcium within normal limits. ASSESSMENT AND PLAN: A 71-year-old right-handed female with a history of multiple sclerosis, admitted with vertigo and lightheadedness, initially positional, as well as the sensation of lower extremity weakness bilaterally, which progressed over the course of about a day and a half, now notably improving. Her symptoms and physical examination are not certain for MS exacerbation. It is reassuring that she has shown notable improvement, and this is even what she says to me today. Because of the uncertainty with regards to exacerbation of her multiple sclerosis, and the fact that she is potentially going to be treated with high-dose steroids, of which she has gotten at least a partial dose last night, I would like to go ahead and order MRI of the brain, cervical, and thoracic spine with contrast to evaluate for active MS lesions. Should this not be noted on the imaging, then I would recommend holding off on high dose steroids given the side effects that can be associated with them. Will order PT and OT evaluations. Thank you for this consultation. Will follow. cc: Gali Casarez MD MTDD
[2017-01-03] MEDS: COUMADIN PO SCH ×2 (20:03→20:07)
[2017-01-03] MEDS: VITAMIN D PO SCH (20:03)
[2017-01-04] MEDS: ALBUTEROL NEB INH PRN ×4 (01:41→20:34)
[2017-01-04] MEDS: SYNTHROID PO SCH (06:47)
[2017-01-04] MEDS: PROTONIX IV SCH (08:10)
[2017-01-04] MEDS: SODIUM CHLORIDE 0.9% 10 ML ONE (08:10)
[2017-01-04] MEDS: LAMICTAL PO SCH ×2 (08:10→22:09)
[2017-01-04] MEDS: BENTYL PO SCH (08:11)
--- NOTE | 2017-01-04 14:41 | PROGRESS NOTE ---
DATE: 01/04/2017 SUBJECTIVE: Today Ms. Macario refers to be doing a lot better. She was a little bit upset because her steroids have been discontinued. According to her, she felt a whole lot better overnight when she was on the steroid. Anyway today she thinks the weakness is a lot better. OBJECTIVE: Vital signs: Blood pressure is 115/51, pulse of 82, respirations 20, temperature is 98.2 degrees. General: Ms. Macario is a 71-year-old female. She is in bed. Does not seems to be in any distress. HEENT: Mucosa is pink and moist. Anicteric. Acyanotic. Neck: Supple. Chest: Clear. Cardiovascular: Regular rate and rhythm. Abdomen: Soft, nontender. Extremities: No pedal edema. 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 I did not see any objective weakness. She was able to actually walk for me a little bit unsteady but there is no any pathological component to her gait. ASSESSMENT: 1. Lower extremity weakness, unsure etiology. There was a suspicion that she probably had a multiple sclerosis flare. However the MRIs of the brain and thoracic and cervical spine have been completely unremarkable. Steroid has been discontinued. Patient has been evaluated by Neurology and she is getting PT. 2. History of asthma. 3. Seizure disorder. 4. Hypothyroidism on Synthroid. We will check her TSH to make sure it is within therapeutic range. So today Ms. Macario refers to be doing fine. She still a little wobbly walking but there is no any pathological component to it. We are going to continue with her medications. Hopefully tomorrow if she continues to be improving and there is no any deterioration will be able to discharge her. cc: Jerardo Guzman MD
--- NOTE | 2017-01-04 16:40 | PROGRESS NOTE ---
DATE: 01/04/2017 SUBJECTIVE: The patient has done well overnight. She continues to show improvement in her symptoms. She denies any vertigo or dizziness or lightheadedness today. She has been up walking with therapy on 1 occasion today. OBJECTIVE: Vital Signs: Reviewed and are stable. General: This is a pleasant female lying in bed. She is in no acute distress. HEENT: Normocephalic atraumatic. Eyes are anicteric. No erythema. Moist mucous membranes. Neck: Supple. Trachea is midline. Neurologic: Mental status: She is awake, alert, and oriented. Her speech is fluent. Attention and concentration are intact. She is appropriately conversant. Recent and remote memory are intact. Motor exam: No drift. Her strength is normal, 5/5 throughout with the exception of some limitations with right arm testing about the shoulder due to previous shoulder surgery and discomfort. Her lower extremities are full power and thoroughly tested. No evidence of sensory abnormality. No evidence of incoordination. No clonus. Gait: She is able to stand without assistance. She does use a cane at baseline and is able to use her cane and walk out of the room into the hallway with me by her side. Her gait seems steady today. DIAGNOSTICS: Lab work was reviewed. She had a blood glucose of 246, and another at 155 and 183. MRI of the brain, cervical and thoracic spinal cord with and without contrast was personally reviewed. There is no evidence of active multiple sclerosis lesions at this time. There is no evidence of chronic multiple sclerosis within the cord. There are extensive chronic white matter changes within the brain and particularly around the lateral ventricles which may be consistent with a diagnosis of multiple sclerosis. ASSESSMENT/PLAN: Pleasant 71-year-old female, with history of multiple sclerosis admitted with vertigo and lightheadedness, initially positional as well as a sensation of lower extremity weakness bilaterally. This has improved significantly since her initial hospitalization. Imaging was all personally reviewed. There is no evidence for active multiple sclerosis exacerbation therefore I discontinued the high-dose steroids yesterday as I see no indication for this and there are obvious side effects that can occur with this medication. I did explain this to the patient yesterday and again today. She expressed understanding and is very cooperative. Again, it is very reassuring that she is not having any weakness on exam and she is able to ambulate without assistance today. Would continue with PT and OT evaluations. Perhaps she could use physical therapy as an outpatient upon discharge. cc: aGli Casarez MD
[2017-01-04] MEDS: COUMADIN PO SCH (22:09)
[2017-01-04] MEDS: VITAMIN D PO SCH (22:09)
[2017-01-05] MEDS: SYNTHROID PO SCH (06:03)
[2017-01-05] MEDS: ALBUTEROL NEB INH PRN ×2 (07:39→10:52)
[2017-01-05 07:54] VITALS: BP 145/64
[2017-01-05] MEDS: PROTONIX IV SCH (09:16)
[2017-01-05] MEDS: BENTYL PO SCH (09:16)
[2017-01-05] MEDS: SODIUM CHLORIDE 0.9% 10 ML ONE (09:16)
[2017-01-05] MEDS: LAMICTAL PO SCH (09:16)
--- NOTE | 2017-01-06 05:25 | DISCHARGE SUMMARY ---
ADMISSION DATE: 01/02/2017 DISCHARGE DATE: 01/05/2017 CONSULTATIONS: Dr. Gali Casarez MD with Neurology PERTINENT PROCEDURES: 1. Brain MRI showed extensive chronic white matter changes. No evidence of active inflammation. 2. Cervical spine MRI showed minimal disk protrusion at C4 through 5. No evidence of intramedullary signal abnormality. 3. Thoracic spine MRI showed no evidence of demyelinating disease in the thoracic cord with apparent hemangioma in T6. DISCHARGE DIAGNOSES: 1. Vertigo and lightheadedness positional with sensation of lower extremity weakness bilaterally. MS flare was ruled out by Neurology. 2. Asthma history. 3. Seizure disorder history. 4. Hypothyroidism. Continue home medications. 5. MS history. Patient will continue on home medications and continue to follow with Dr. Moore in [place]. HOSPITAL COURSE: Ms. Macario is a 71-year-old female who has a history of MS admitted with vertigo and lightheadedness with a sensation of lower extremity weakness bilaterally. This has significantly improved since admission. All of her imaging was negative for MS flare. She was evaluated by Neurology. They have discontinued her high-dose steroids. She has worked with physical therapy. She now denies any vertigo, dizziness or lightheadedness. Again, she has been up walking with physical therapy. Dr. Guzman feels the patient is appropriate for discharge today. VITAL SIGNS: Temperature is 97.9 degrees, heart rate 85, respirations 20, blood pressure is 145/64, and O2 is 97% on room air. DISCHARGE DIET: Regular. DISCHARGE MEDICATIONS: 1. Albuterol inhaler 2 puffs inhaled q.4 hours p.r.n. 2. Vitamin D3 2000 units p.o. at bedtime. 3. Bentyl 10 mg p.o. daily. 4. Lamictal 800 mg p.o. daily. 5. Synthroid 25 mcg p.o. daily. 6. Nitroglycerin 0.4 mg sublingual p.r.n. 7. Zofran 1-2 tabs p.o. q.6 hours p.r.n. 4 mg tablets. 8. Protonix 40 mg p.o. daily. 9. Coumadin 10 mg p.o. at bedtime. FOLLOW UP: Ms. Macario is being discharged back home. She is encouraged to follow up with her primary care physician DULCE Stuart in 1 week as well as Dr. Moore as instructed. She can return to the ED for any worsening of symptoms. TIME SPENT: Discharge time 30 minutes. Dictated by DULCE Moscoso for Jerardo Guzman MD cc: MD Grecia Holland CRNP Christopher C. Laganke, MD
== END 2017-01-05 13:45 | disposition home or self-care (01) ==
LOC: ED 17:52 → SUATTDRO 20:45 → 3N 20:45
PROVIDERS: ATTEND Internal Medicine

== ENCOUNTER 2017-03-14 20:08 | Inpatient (IN) ==
[2017-03-14 21:05] LABS: MANUAL DIFF NEEDED? NO
[2017-03-14 21:14] LABS: BASO% 0.5 % (0.0-0.8); EOS# 0.26 X1000 (0.0-0.7); EOS% 4.6 % (0.0-10.0); HEMOGLOBIN 11.6 g/dL (12.0-16.0); LYMPH# 1.46 X1000 (1.2-3.4); LYMPH% 26.1 % (20.5-51.1); MCH 25.1 PG (27-31); MCHC 31.4 g/dL (33-37); MCV 80.1 FL (81-99); MONO# 0.57 X1000 (0.11-0.59); MONO% 10.2 % (1.7-9.3); MPV 9.5 FL (7.4-10.4); NEUT% 58.6 % (42.2-75.2); PLT 328 X1000 (130-400); RBC 4.62 XMIL (4.2-5.4)
[2017-03-14 21:24] LABS: PTT 39.1 Seconds (22.0-36.0)
--- NOTE | 2017-03-14 21:29 | Diag Imaging Result Doc PS360 ---
EXAM: CT HEAD W/O CONTRAST HISTORY: sudden right leg weakness TECHNIQUE: CT of the head without contrast with reduced dose (clarity.) COMMENT: There are calcifications in the left vertebral and both internal carotid arteries. There are patchy lucencies throughout the white matter of both hemispheres. There is no evidence of mass effect, bleed, or abnormal extra-axial fluid collection. Compared to 06/16/2016 there has been no significant change in the appearance of the brain. The visualized paranasal sinuses are clear. There is no evidence of acute bony disease. IMPRESSION: Chronic ischemic change. No evidence of acute disease. Electronically signed by Ranjit Gandara 03/14/2017 9:27 PM
[2017-03-14 21:33] LABS: AGAP 12; ALBUMIN 3.8 g/dL (3.5-5.0); ALKALINE PHOSPHATASE 102 U/L (32-104); BUN 14 mg/dL (8-22); CALCIUM 9.1 mg/dL (8.8-10.2); CHLORIDE 104 mmol/L (98-107); COSMO 284; GOT 16 U/L (10-30); GPT 13 U/L (10-36); POTASSIUM 4.2 mmol/L (3.5-5.1); SODIUM 142 mmol/L (136-145); TCO2 26 mmol/L (25-35); TOTAL BILIRUBIN 0.14 mg/dL (0.20-1.00); TOTAL PROTEIN 6.4 g/dL (6.3-8.3)
[2017-03-14 21:45] LABS: INR 2.25; PROTIME 24.9 Seconds (9.2-11.7)
[2017-03-14] MEDS ORDERED: TYLENOL PO ONE (21:58)
[2017-03-14] MEDS ORDERED: COUMADIN PO ONE (21:58)
[2017-03-15] MEDS ORDERED: NITROGLYCERIN SL PRN (01:14)
[2017-03-15] MEDS ORDERED: COUMADIN PO SCH (01:30)
[2017-03-15] MEDS: COUMADIN PO SCH ×2 (01:52→20:51)
--- NOTE | 2017-03-15 03:24 | PROVIDER DOCUMENTATION ---
This chart was entered by Steve Wagoner Scribe, acting as scribe for Steve Cheney MD. HPI-General Adult - General Chief Complaint: General Adult Stated Complaint: difficulty walking Time Seen by Provider: 03/14/17 20:14 Source: patient Allergies/Adverse Reactions: Patient Allergies Allergy/AdvReac Type Severity Reaction Status Date / Time adhesive tape Allergy RASH Verified 03/14/17 20:28 levofloxacin [From Levaquin] Allergy Unknown Verified 03/14/17 20:28 cephalexin monohydrate * AdvReac HIVES Verified 03/14/17 20:28 [From Keflex] codeine AdvReac ITCHING Verified 03/14/17 20:28 Home Medications: Home Medication List Medication Instructions Recorded Confirmed Last Taken Type Cholecalciferol (Vitamin D3) 2,000 unit PO QHS 05/13/15 03/15/17 12/19/16 History [Vitamin D3] Levothyroxine [Synthroid] 25 microgm PO DAILY 05/15/15 03/15/17 01/02/17 History Albuterol Sulfate [Albuterol 2 puff IH Q4H PRN #1 [email or web address] 07/31/15 03/15/17 01/01/17 Rx Sulfate Hfa] Lamotrigine [Lamictal] 800 mg PO DAILY 12/10/15 03/15/17 01/02/17 History Ondansetron HCl [Zofran] 1 - 2 tab PO Q6H PRN PRN #15 tablet 04/13/16 03/15/17 01/02/17 17:25 Rx Pantoprazole [Protonix] 40 mg PO DAILY@0700 #30 tablet 04/13/16 03/15/17 Rx Nitroglycerin 0.3 mg SL PRN PRN 01/02/17 03/15/17 1 Day Ago History Warfarin Sodium [Coumadin] 6 mg PO QHS 03/15/17 03/15/17 03/13/17 History - History of Present Illness -Gen Adult Nature of Presenting Problems: Pt is a 71 y/o F who says suddenly at 5pm tonight her legs would not support her. She states she has hx of MS first dx in 1975 with no problems in the last couple months. She states this happened with leg weakness about 1 month ago and cleared up with steroids. Holliday recently stopped taking her base line meds based on recent MRI. She denies numbness and tingling in the extremities. Location of Pain/Injury: reports: none, lower extremity (weakness) Pain Radiation: reports: no radiation Onset/Duration: reports: abrupt, 4-6 hours ago Timing: reports: still present Context/Activities at Onset: reports: none Modifying Factors: improves with: nothing Associated Symptoms: reports: weakness, trouble walking Similar Symptoms Previously?: Yes (states this happened one time before) Recently seen or treated by another doctor?: Yes Review of Systems - Adult - REVIEW OF SYSTEMS - ADULT Constitutional: denies: chills, fever Eyes: reports: no symptoms reported Ears, Nose, Mouth & Throat: denies: ear pain, epistaxis, sinus problem, throat pain Cardiovascular: denies: chest pain, edema Respiratory: denies: chronic cough, cough, shortness of breath, wheezing Gastrointestinal: denies: abdominal pain, nausea, vomiting Genitourinary: reports: no symptoms reported Musculoskeletal: reports: muscle weakness. denies: bone pain, back pain, joint pain Integumentary: reports: no symptoms reported Neurological: reports: loss of balance. denies: dizziness/vertigo, headache/ migraines, slurred speech Psychiatric: denies: anxiety, anti-depressant use Endocrine: reports: no symptoms reported Hematologic/Lymphatic: reports: no symptoms reported Allergic/Immunologic: reports: no symptoms reported All Other Systems: Reviewed and Negative Past History - Adult - PAST MEDICAL HISTORY-ADULT Review of Records: reports: Old Records Reviewed, Nursing Assessment Review, Medications Reviewed Major Childhood Illnesses: reports: denies history Cardiovascular: reports: denies history Respiratory: reports: asthma, pneumonia Gastrointestinal: reports: cholelithiasis Obstetrical/Gynecological: reports: denies history Genitourinary: reports: denies history Musculoskeletal: reports: other (pt states dignosed) Neurological: reports: Multiple Sclerosis, Seizures/Epilepsy (seizure ) Endocrine/Immune: reports: denies history Other Conditions: reports: denies history - PRIOR SURGERIES/PROCEDURES Surgical/Procedure History: reports: appendectomy, colonoscopy, hysterectomy, hernia repair, orthopedic (extremity) - IMMUNIZATION STATUS Childhood Immunizations: See Nurse Assessment Flu Vaccine: See Nurse Assessment - FAMILY HISTORY Family History: reviewed, not pertinent Physical Exam-General - PHYSICAL EXAM-ADULT Initial Vital Signs Reviewed: Yes - CONSTITUTIONAL General Appearance: appears well, alert, no apparent distress - EYES Eyes: PERRL/EOMI, pink conjunctivae - HEAD, EARS, NOSE, MOUTH & THROAT HENMT: moist mucous membranes, normal ENT inspection, TMs normal, pharynx normal - NECK Neck: full range of motion, supple, normal inspection - RESPIRATORY Respiratory: lungs clear, normal breath sounds, no pleuratic chest pain, no respiratory distress, no accessory muscle use - CARDIOVASCULAR Cardiovascular: normal peripheral pulses, regular rate, rhythm - GASTROINTESTINAL (ABDOMEN) Abdominal Exam: normal bowel sounds, non tender, soft - MUSCULOSKELETAL Back Exam: normal inspection, no CVA tenderness, no vertebral tenderness Extremity: normal range of motion, non-tender, normal gait, normal inspection - SKIN Integumentary: normal color, normal turgor, warm/dry - NEUROLOGIC Neurologic: grossly normal, abnormal gait, motor weakness (right lower extremity ), other (right ankle reflex diminished). negative: no motor/sensory deficits, aphasia - PSYCHIATRIC Psych/Mental Status: normal mood/affect, normal thought content, normal thought process, oriented x 3 Progress - PLAN OF CARE/RESULTS Progress/Plan/Lab Results: Vital Signs - 8 hr 03/14/17 20:05 Temperature 97.9 F Pulse Rate 98 H Respiratory Rate 20 Blood Pressure 166/90 O2 Sat by Pulse Oximetry 95 Orders Category Date Time Status CBC WITH ELECTRONIC DIFF [HEME] Stat Lab 03/14/17 20:28 Uncollected CMP [COMPREHENSIVE METABOLIC PANEL] [CHEM] Stat Lab 03/14/17 20:28 Uncollected Result Diagrams: 03/14/17 20:56 03/14/17 20:56 - CT/MRI 1 CT Study: Head Impression: Normal (no acute changes) Departure - Departure Date of Disposition Decision: 03/14/17 Time of Disposition Decision: 22:01 DIAGNOSIS: Right leg weakness Disposition: ADMITTED INPATIENT 09 Certified Medical Emergency: Emergent Condition: Fair - Critical Care Note This patient required my direct & personal management of CC.: No Attestation - Physician/ [facility] Attestation Patient care was provided by Advanced Practice Provider:: No The physician spent face to face time with patient:: Yes Advanced Practice Provider documentation review:: Supervising physician onsite and consulted in the evaluation and care of this patient. The physician did have a face to face encounter with the patient. This chart was documented by the indicated scribe, (Steve Wagoner Scribe) and accurately reflects the services I performed and decisions made by me, Steve Cheney MD, as attested by the provider's signature.
[2017-03-15] MEDS: LAMICTAL PO SCH ×3 (03:25→20:51)
--- NOTE | 2017-03-15 05:27 | HISTORY AND PHYSICAL ---
FAMILY PHYSICIANS: DULCE Stuart, and Dr. Moore in [place]. CHIEF COMPLAINT: Loss of balance and difficulty walking. HISTORY OF PRESENT ILLNESS: Patient is a very pleasant 71-year-old lady with past medical history of multiple sclerosis, seizure, hypothyroidism, PE, and asthma, has come with the difficulty walking and feeling of loss of balance in both of her legs. She was here in [place] a couple of months ago with the same type of complaints. At that time, it was diagnosed as a multiple sclerosis flare up and started on high-dose steroids. But her MRI was negative for any acute flare-ups. So that medicine was discontinued later. She had felt better at that time, and then was discharged. She has been doing all right. Couple of weeks ago, she had similar type of episode, but it got resolved. Today around 5 p.m., she got up. She suddenly felt that her legs are not in her full control, and she is not able to stand properly on that and thought that they were "giving way or just walking on their own." She does use cane. But even with a cane, she was not able to keep her balance straight. She is very clear that she was not having any weakness in the leg, but it was only lost of balance; although she did not feel any dizziness or lightheadedness. Rather, it was some heaviness in the head noted. She did not have any other complaints. She tried to again resist, not to come to the hospital. But she has not been able to get up and walk anywhere. So she finally decided to come to the hospital. She does not have any chest pain, no shortness of breath. No nausea, no vomiting. No belly pain. No diarrhea or constipation. No numbness or tingling in any part of the body. No focal weakness noted as well. REVIEW OF SYSTEMS: All 12 review of systems done and pertinent positives per HPI. Rest is negative. PAST MEDICAL HISTORY: 1. Multiple sclerosis. 2. Seizure. 3. Hypothyroidism. 4. History of PE. 5. History of similar episodes of loss of balance in the past. PAST SURGERY HISTORY: 1. Right shoulder surgery twice. 2. Appendectomy. 3. Hysterectomy. 4. Cholecystectomy. 5. Gastric bypass surgery. HOME MEDICATIONS: Coumadin 10 mg at bedtime, Protonix 40 mg daily. Rest all medications have been reviewed and reconciled. FAMILY HISTORY: No neurological problems, but there is positive history of prior MS and lung cancer, breast cancer. SOCIAL HISTORY: She lives with her granddaughter and no smoking, no drinking, and no drugs. She used to smoke, but she has quit several years ago. ALLERGIES: Keflex and all other opioids. PHYSICAL EXAMINATION: VITAL SIGNS: Have been stable. Blood pressure on the higher side, like 135/87 , heart rate is 73, respiratory rate of 20, and oxygen saturation of 95. GENERAL: She is a pleasant elderly lady not in acute distress. Sitting comfortably on the bed. Alert and oriented. HEENT: Atraumatic head. Pupils equal, round, reactive to light. Extraocular movements intact. CHEST: Clear to auscultation bilaterally. No wheezing, rales, or rhonchi noted. CVS: S1, S2 0, regular rate and rhythm. GI: Abdomen is soft, nontender, and nondistended. EXTREMITIES: No peripheral edema noted. NEUROLOGIC: She is awake, alert, and oriented x3. There is no weakness in any arm or leg noted. Power is 5/5. The finger-nose test, and other cerebellar tests are negative. No sensory deficit noted. Cranial nerves all intact. But when I ask her to stand up, she was still not feeling right in her balance and start of not feeling dizziness or lightheadedness or woozy in the head, but rather the feeling of her legs not under complete controlled. So I did not make her walk and let her sit back. RESULTS OF LABS: CBC is grossly within normal limits. INR is 2.25. She is on Coumadin, and then her CMP is all within normal limits as well. RADIOLOGY: CT scan head was done, which shows chronic ischemic changes, but otherwise no particular findings. No acute finding on the CT scan. ASSESSMENT AND PLAN:: The patient is a pleasant 71-year-old lady, who has history of multiple sclerosis. She was here before with a feeling of the legs giving way and loss of balance. She is back here with the same type of the symptoms. No finding on the CT scan. We are managing as followin. Loss of the balance in the legs. It was diagnosed as acute multiple sclerosis flare up last time, but later it was ruled out by Neurology with a negative MRI reports. I am not sure, but it could be like cerebellar transient ischemic attack or stroke type of the symptoms, given the multiple episodes resolving on their own and no finding on the CT yet having chronic ischemic changes. I will get her MRIs again head and spine. Neurology to be consulted in the morning. I am not starting her on steroids and basically letting her blood pressure also run high for possible acute stroke. If the blood pressure runs too high, we manage that . Basically at this point, we will just keep a very close eye without any active intervention. She is on Coumadin, and her INR is therapeutic. So having stroke is also very less likely. Overall, it looks like a complex neurological case. 3. Asthma and chronic obstructive pulmonary disease. She looks stable at this point. No complaint of shortness of breath, and no finding on examination. Breathing treatment will be given p.r.n. 4. History of seizure disorder. Continue Lamictal and no seizures reported. 5. History of pulmonary embolism. 6. She is on Coumadin, and her INR is 2.3. We will continue Coumadin. 7. Hypothyroidism. We will continue her home medication of Synthroid. 8. Deep venous thrombosis prophylaxis. She is on Coumadin already. 9. All medications have been reviewed and reconciled. All orders placed to be reviewed and finalized by the morning attending. cc: MD LUCIA St
[2017-03-15] MEDS: PRILOSEC PO SCH ×2 (05:56→06:39)
[2017-03-15] MEDS: SYNTHROID PO SCH ×2 (05:56→06:39)
--- NOTE | 2017-03-15 09:35 | Diag Imaging Result Doc PS360 ---
EXAM: MRI CERVICAL SPINE W/O CONTRAS INDICATION: MS TECHNIQUE: COMPARISON: None. FINDINGS: The osseous marrow signal is unremarkable. The cervical spinal cord signal and structures at the base the brain are unremarkable. There is nothing to suggest demyelination plaques involving the cervical cord. Surrounding soft tissues appear normal. Segmental analysis of the cervical spine is detailed below. C1-2: Sagittal images at this level are unremarkable. C2-3: Unremarkable. C3-4: There is a tiny central disc osteophyte complex causing minimal effacement of the ventral thecal sac, stable. There is no evidence of cord compression or significant neural foraminal stenosis. C4-5: There is a central protruding disc osteophyte complex causing mild effacement of ventral thecal sac. It nearly contacts the ventral surface of the spinal cord. There is a mild depression in the ventral surface of the cord mirroring the small osteophyte indicating contact when in a standing position. This level is stable. There is no evidence of significant foraminal stenosis. C5-6: There is a small broad-based disc osteophyte complex causing mild effacement of the ventral thecal sac. There is no evidence of cord compression or significant neuroforaminal stenosis. This level is stable. C6-7: Unremarkable. C7-T1: Unremarkable. IMPRESSION: 1.Very mild degenerative disc disease at a few levels as detailed above that is essentially stable as compared to the previous study. 2.No abnormal cord signal appreciated to indicate demyelination plaques. Electronically signed by Karan Miguel 03/15/2017 9:33 AM
--- NOTE | 2017-03-15 09:38 | Diag Imaging Result Doc PS360 ---
EXAM: MRI LUMBAR SPINE W/O CONTRAST HISTORY: ms TECHNIQUE: MRI lumbar spine without contrast. Axial and sagittal images obtained in multiple sequences. COMPARISON: None. FINDINGS: There is good alignment to the lumbar spine. No compressed vertebra. No subluxation. The conus is at L1. T12-L1: Normal disc. No spinal stenosis or cord compression. Neither neural foramen is narrowed. L1-2: Normal disc. No spinal stenosis. Neither neural foramen is narrowed. L2-3: Normal disc. Mild facet hypertrophy. No spinal stenosis. Neither neural foramen is narrowed. L3-4: There is mild central bulging of this disc. It moderately bulges laterally on the right. This causes mild to moderate right neural foraminal narrowing. There is also facet hypertrophy. Minimal spinal stenosis. Normal left neural foramen. L4-5: Minimal disc bulge. Moderate to prominent bilateral facet hypertrophy. This results in mild spinal stenosis. Each neural foramen is mildly narrowed. L5-S1: No disc bulge. No spinal stenosis. Neither neural foramen is narrowed. There is mild to moderate facet hypertrophy. IMPRESSION: Right lateral bulging disc at L3-4 resulting in neural foraminal narrowing. Electronically signed by Manny Stout 03/15/2017 9:36 AM
--- NOTE | 2017-03-15 09:39 | Diag Imaging Result Doc PS360 ---
EXAM: MRI THORACIC SPINE W/O CONTRAS INDICATION: MS TECHNIQUE: COMPARISON: 01/03/2017 FINDINGS: There is an incidental small stable hemangioma involving one of the mid thoracic spine vertebral bodies. The osseous marrow signal is unremarkable, otherwise. The thoracic spinal cord signal is normal. There is no evidence of demyelination plaques involving the cord. There is no evidence of significant disc pathology, central canal stenosis, or neuroforaminal stenosis at any of the thoracic levels. Surrounding soft tissues are grossly unremarkable. IMPRESSION: No signal abnormality identified in the thoracic cord to indicate demyelination. Electronically signed by Karan Miguel 03/15/2017 9:36 AM
--- NOTE | 2017-03-15 09:42 | Diag Imaging Result Doc PS360 ---
MRI BRAIN W W/O CONTRAST - 03/15/2017 INDICATION: Loss of balance in the legs with hx of MS COMPARISON: 01/03/2017 FINDINGS: There is no area of restricted diffusion. The ventricles and sulci are normal in size and contour. Midline structures are unremarkable. There is stable, extensive periventricular and deep cerebral white matter hyperintensity compatible with chronic demyelination or ischemia. No intracranial mass or hemorrhage. No abnormal contrast enhancement. IMPRESSION: No change from prior. Electronically signed by Bull Alvarado 03/15/2017 9:40 AM
--- NOTE | 2017-03-15 12:52 | PROGRESS NOTE ---
DATE: 03/15/2017 SUBJECTIVE: Today Ms. Macario refers to be doing a little better. Continues to be wobbly. According to her, the main reason why she came to the hospital was because of generalized weakness and legs getting wobbly. She thinks she probably was having multiple sclerosis flare. OBJECTIVE: Vital signs: Blood pressure is 144/62, pulse of 54, respirations 20 , temperature 98.1. General: Ms. Macario is a 71-year-old female. She is in bed , not in any distress. Mucosa is pink and moist. Anicteric and acyanotic. Neck is supple. Chest is clear. No crepitations. No rhonchi. Cardiovascular: Regular rate and rhythm. There is no murmur, no rub and no gallop. Abdomen: Soft, nontender. Bowel sounds are present. Extremities: No pedal edema. RESERVES CLERK: The patient is awake, alert and oriented. She has no focal neurological deficit. The patient's gait seems to be pretty fine. She was able to walk about 50 to 100 feet with me this morning. She needed a little bit of guidance every now and then, but she did not use any pathological gait. She used a cane during the testing. DIAGNOSTIC DATA: Laboratory data has been reviewed and is unremarkable. The patient had an MRI of the brain this morning which shows stable extensive periventricular and deep cerebral white matter hyperintensity compatible with chronic demyelination or ischemia. No intracranial mass. No abnormal contrast enhancement. Cervical spine MRI shows no abnormal cord signal appreciated to indicate demyelinating plaques. A lumbar spine MRI shows right lateral bulging disk resulting in neuroforaminal narrowing; however, the patient does not have any acute radicular myelopathy. Thoracic spine shows no signal abnormality identified. ASSESSMENT: 1. Generalized weakness with balance issue. So far, imaging studies have ruled out MS flare, so I do not think the patient needs to be on any steroids. I think her generalized weakness is probably just because of her excess weight. However the dizziness and ataxia could be medication side effects. We would advise her to continue with physical therapy and eventually transition to a rehab. We will also get Neurology to evaluate her to make sure we are not missing anything neurological. 2. History of multiple sclerosis. As I said, I do not think it is currently in flare. 3. Hypothyroidism. We will continue with the patient on levothyroxine. There was no TSH, and we will reorder this. 4. History of seizure disorder, on Lamictal. PLAN: In general, I think Ms. Macario is stable. She specifically requested steroid administration. However, I told her all of her imaging studies and her clinical presentation is not consistent with MS flare, and I do not think she needs huge doses of steroids for flare therapy. We will, however, consult Neurology to evaluate the patient. We will also do her vitamin D levels to make sure it is not causing some of her generalized muscle weakness. cc: Jerardo Guzman MD [facility]
[2017-03-15] MEDS: VENTOLIN HFA INH PRN ×3 (15:34→21:30)
--- NOTE | 2017-03-15 16:00 | CONSULTATION ---
DATE OF CONSULTATION: 03/15/2017 HISTORY OF PRESENT ILLNESS: Ms. Macario is 71 years old and she reports feeling unsteady with gait yesterday. She reports symptoms were identical to what she experienced a few months ago when she was hospitalized here in December. She reports unsteady gait, possibly very slight shifting or spinning sensation, but not definite lightheadedness. She did not notice clumsiness in one leg more than the other. Vision may have been briefly blurred, but there was not diplopia or focal loss of visual field. She was never unconscious. She did not notice any changes in speech. She has chronic slight right leg weakness and that was not changed from baseline yesterday. She reports multiple sclerosis diagnosed many years ago. MS has been followed in [place] recently. She had received Tysabri infusions, but reports that has been stopped. She reports a history of seizures with last seizure a few years ago and current medicine is lamotrigine 200 mg 2 tablets b.i.d. (400 mg b.i.d., 800 mg daily). She is not certain about recent lamotrigine serum levels. Sometimes, she feels a little bit dizzy and believes that she feels better after she takes her lamotrigine dose. Workup here this admission includes brain MRI done with and without contrast, showing usual age-related changes, but no evidence of active MS plaque. Overall, findings are unchanged compared to scan done here 01/03/2017. She has had cervical spine MRI this admission showing some degenerative changes, but no abnormal cord signal. Thoracic spine MRI this admission shows no abnormal cord signal. Lumbosacral spine MRI this admission shows right L3-4 disk bulge with some neuroforaminal narrowing, but no abnormal cord signal and no HNP. Dr. Casarez saw her for neurology evaluation during December 2016 admission. Based on her history, there was question of MS flare-up then and she had started a course of steroids. Steroids were stopped after workup was all negative then. PHYSICAL EXAMINATION: On exam now, Ms. Macario is awake, alert, attentive, appropriate, oriented. Speech is not dysarthric. Language function is intact. Memory seems good. Head and neck are unremarkable. Visual grant are full tested by confrontational finger counting. Extraocular movements are full. Facial motility is symmetric. Facial sensation is intact. Gag is intact. Tongue is midline. She can hear. Shoulder shrug is pretty good bilaterally. She splints the right shoulder and has some limited range of motion typical of right shoulder joint problem. Left shoulder is unremarkable. She has good power symmetrically in the arms. She has good power in the left leg. I can overcome the right iliopsoas, grading 4/5. Tone is equal in the limbs. Reflexes are 1+ at the wrists and absent at the knees. Plantar response is silent bilaterally. Proprioception is good at the great toe MTP joint bilaterally. She did well on [id number] testing bilaterally. IMPRESSION: Recent dizziness and unsteady gait, uncertain etiology. I wonder if she might have positional vertigo, labyrinthopathy syndrome. Another possibility would be lamotrigine toxicity, and I will order the serum lamotrigine level. We will not get that report for at least a few days. I think it would be reasonable to evaluate her with Physical Therapy. I encouraged her to be careful with activities and not to be up without assistance. I do not see evidence of multiple sclerosis exacerbation as a reason for her recent trouble. Also, I do not see evidence of acute cerebrovascular event. There is no evidence of increased intracranial pressure. Features are not typical of apraxia. I do not have any other suggestions right now. Thanks for asking me to see Ms. Macario. cc: Rizwan Raphael III, MD [facility]
[2017-03-15] MEDS ORDERED: VITAMIN D PO SCH (21:00)
[2017-03-16] MEDS: PRILOSEC PO SCH (05:59)
[2017-03-16] MEDS: SYNTHROID PO SCH (05:59)
[2017-03-16 06:17] LABS: MANUAL DIFF NEEDED? NO
[2017-03-16 06:25] LABS: BASO% 0.2 % (0.0-0.8); EOS# 0.22 X1000 (0.0-0.7); EOS% 4.4 % (0.0-10.0); HEMATOCRIT 34.5 % (37.0-47.0); HEMOGLOBIN 10.7 g/dL (12.0-16.0); LYMPH# 1.22 X1000 (1.2-3.4); LYMPH% 24.6 % (20.5-51.1); MCH 24.8 PG (27-31); MONO% 10.1 % (1.7-9.3); MPV 9.6 FL (7.4-10.4); NEUT% 60.7 % (42.2-75.2); PLT 336 X1000 (130-400); RBC 4.31 XMIL (4.2-5.4)
[2017-03-16 06:37] LABS: AGAP 10; ALBUMIN 3.6 g/dL (3.5-5.0); ALKALINE PHOSPHATASE 90 U/L (32-104); BUN 12 mg/dL (8-22); CHLORIDE 106 mmol/L (98-107); COSMO 288; GOT 13 U/L (10-30); GPT 10 U/L (10-36); SODIUM 145 mmol/L (136-145); TCO2 29 mmol/L (25-35); TOTAL BILIRUBIN 0.16 mg/dL (0.20-1.00); TOTAL PROTEIN 5.8 g/dL (6.3-8.3)
[2017-03-16] MEDS: LAMICTAL PO SCH (10:28)
--- NOTE | 2017-03-16 11:04 | PROGRESS NOTE ---
DATE: 03/16/2017 SUBJECTIVE: Ms. Macario reports she feels completely recovered. She told me today that her problems were not really dizziness. The sense of unsteady gait has completely resolved and she believes she is back to baseline now. Overall, she reports symptoms this time were identical to what she experienced a few months ago and symptoms resolved more quickly this time. We have lamotrigine serum level pending. I do not have any new suggestion from neurologic standpoint. For now, I would continue current management and hope she can be discharged soon. She will keep her neurology followup with Dr. Benjamin Moore in [place]. I will be glad to see Ms. Macaroi again if needed. Thanks for asking me to see her. cc: MD LUCIA Gonzales III
[2017-03-16 11:52] VITALS: BP 142/80
[2017-03-16] MEDS: VENTOLIN HFA INH PRN (15:09)
--- NOTE | 2017-03-17 06:05 | DISCHARGE SUMMARY ---
ADMISSION DATE: 03/15/2017 DISCHARGE DATE: 03/16/2017 FOLLOW UP: 1. Follow up will be with patient's neurologist Dr. Benjamin Moore [place]. 2. Patient's PCP. DISPOSITION: Home. CONSULTATION DURING THIS ADMISSION: Neurology was consulted. Patient was seen by Dr. Raphael. INVASIVE PROCEDURES DONE DURING ADMISSION: None. IMAGING STUDIES OF SIGNIFICANCE: 1. A brain MRI was done which showed extensive periventricular and deep cerebral white matter hyperintensity compatible with chronic demyelinating ischemia, but there was no acute abnormal contrast enhancement. 2. A cervical spine MRI shows no abnormal cord signal appreciated to indicate demyelinating plaques. 3. The lumbar spine MRI showed right lateral bulging disk at L3-L4 resulting in neural foraminal narrowing. 4. A thoracic spine MRI shows no signal abnormality identifying the thoracic cord to indicate demyelination. ADMISSION DIAGNOSES: 1. Loss of balance in legs. 2. Asthma and COPD. 3. History of seizures. DIAGNOSES AT TIME OF DISCHARGE: 1. Generalized weakness with ataxia resolved. We think this is probably related to Lamictal toxicity versus side effects. Patient's Lamictal was reduced. The dose was reduced and levels were sent, however, this was still pending at the time of her discharge. She will review this with Dr. Moore. 2. History of multiple sclerosis. Currently, we do not think her neurological presentation was consistent with MS flare 3. Hypothyroidism stable. 4. History of seizure disorder on Lamictal. As I said, the dose had been readjusted because of suspicion that it is causing reaction. DISCHARGE MEDICATIONS: 1. Cholecalciferol. 2. Levothyroxine 25 mcg daily. 3. Albuterol. 4. Pantoprazole. 5. Coumadin 6 mg at bedtime. 6. Lamictal 400 b.i.d. PRESENTING COMPLAINT: Loss of balance and difficulty walking. HISTORY OF PRESENTING COMPLAINT: Ms. Macario is a 71-year-old female with a history of multiple sclerosis, seizure and hypothyroidism who normally follows up with Dr. Moore. The patient is on high-dose of Lamictal. She presented to the hospital about 1 month ago with a similar complaint. She was evaluated by Neurology and sent home but then she is back this time because of generalized weakness, dizziness and unable to walk which she thought she was in flare However after examination, we thought she was not. Steroids were not given to her at this time. Neurology was consulted and there was a suspicion that it could be just her Lamictal was giving her those neurological symptoms. The dose of Lamictal was readjusted. Patient actually felt a whole lot better. Today, she was able to walk very well with physical therapy. She did not have any more dizziness. No ataxic gait and no muscle weakness. She was subsequently discharged to follow up with Dr. Moore and reviewed the Lamictal levels. At the time of discharge, the only thing pending was the Lamictal level. All of her lab work has been reviewed. The unremarkable vitals are also stable. Patient will be discharged in stable condition. All of the discharge instructions have been discussed with the patient and she voices understanding. TIME SPENT FOR DISCHARGE: 36 minutes. cc: Jerardo Guzman MD [facility]
== END 2017-03-16 16:05 | disposition home health service (06) ==
LOC: ED 20:08 → 4N 03-15 01:00 → SUATTDRO 03-15 01:00
PROVIDERS: ATTEND Internal Medicine